=== PATIENT | male | born 1965 | race Two or more races ===

== ENCOUNTER 2020-10-11 06:59 | Inpatient (IN) | payer BC, OTHER ==
[~2020-10-11] VITALS: Ht 167.6 cm; Wt 133.6 kg
[2020-10-11 07:38] LABS: Basophils # (auto) 0 10 ^3/uL (0-0.2); Basophils % (auto) 0.6 % (0.0-2.0); Eosinophils # (auto) 0.2 10 ^3/uL (0-0.8); Eosinophils % (auto) 2.4 % (0.0-7.0); Hematocrit 43.2 % (41.0-53.0); Hemoglobin 15.2 g/dL (13.5-17.5); Lymphocytes # (auto) 1.4 10 ^3/uL (0.4-5.4); Mean Corpuscular Hemoglobin 31.9 pg (28.0-32.0); Mean Corpuscular Hgb Conc. 35.2 g/dL (32.0-36.0); Mean Corpuscular Volume 90.6 fL (80.0-100.0); Monocytes # (auto) 0.5 10 ^3/uL (0-1.3); Neutrophils # (auto) 5.9 10 ^3/uL (1.6-8.6); Red Blood Cells 4.77 10^6/uL (4.5-5.90); Red Cell Distribution Width 12.3 % (11.8-14.3)
[2020-10-11 07:44] LABS: Albumin 3.6 g/dL (3.4-5.0); Calcium 8.7 mg/dL (8.5-10.1); Potassium 3.9 mmol/L (3.5-5.1)
[2020-10-11 07:47] LABS: BUN/Creatinine Ratio 9.3; Bilirubin, Total 0.6 mg/dL (0.2-1.0); Total Protein 7.5 g/dL (6.4-8.2)
[2020-10-11] MEDS ORDERED: metroNIDAZOLE 500MG/100ML 100 ML IV ONE (09:30)
[2020-10-11] MEDS ORDERED: SODIUM CHLORIDE 0.9% 1,000 ML IV ONE (09:30)
[2020-10-11] MEDS ORDERED: levoFLOXacin 500MG 100 ML IV ONE (09:30)
[2020-10-11] MEDS ORDERED: KETOROLAC TROMETH 30 MG/ML 1ML VIAL IV ONE (09:30)
[2020-10-11] MEDS ORDERED: HYDROcodone-ACET 5/325MG TAB PO PRN (10:30)
[2020-10-11] MEDS ORDERED: MORPHINE SULFATE INJECTION 2 MG/ML SYRG IV PRN (10:30)
[2020-10-11 14:00] VITALS: BP 117/69
[2020-10-11] MEDS: SODIUM CHLORIDE 0.9% 1,000 ML IV SCH (14:45)
[2020-10-11] MEDS: metroNIDAZOLE 500MG/100ML 100 ML IV SCH ×2 (14:46→22:40)
[2020-10-11 17:10] VITALS: BP 115/72
[2020-10-11 20:00] VITALS: BP 123/76
[2020-10-11] MEDS: DOCUSATE SOD 100 MG CAP PO SCH (22:41)
[2020-10-12] MEDS: SODIUM CHLORIDE 0.9% 1,000 ML IV SCH ×3 (02:23→16:30)
[2020-10-12 04:00] VITALS: BP 103/65
[2020-10-12] MEDS: metroNIDAZOLE 500MG/100ML 100 ML IV SCH ×3 (05:57→21:34)
[2020-10-12 07:07] LABS: Basophils # (auto) 0 10 ^3/uL (0-0.2); Basophils % (auto) 0.4 % (0.0-2.0); Eosinophils # (auto) 0.2 10 ^3/uL (0-0.8); Eosinophils % (auto) 2.7 % (0.0-7.0); Hematocrit 41.2 % (41.0-53.0); Hemoglobin 14.6 g/dL (13.5-17.5); Lymphocytes # (auto) 1.2 10 ^3/uL (0.4-5.4); Lymphocytes % (auto) 16.9 % (10.0-50.0); Mean Corpuscular Hemoglobin 32.1 pg (28.0-32.0); Mean Corpuscular Hgb Conc. 35.5 g/dL (32.0-36.0); Mean Corpuscular Volume 90.6 fL (80.0-100.0); Monocytes # (auto) 0.7 10 ^3/uL (0-1.3); Monocytes % (auto) 9.8 % (0.0-12.0); Neutrophils # (auto) 5.1 10 ^3/uL (1.6-8.6); Neutrophils % (auto) 70.2 % (37.0-80.0); Red Blood Cells 4.55 10^6/uL (4.5-5.90); Red Cell Distribution Width 12.4 % (11.8-14.3); White Blood Cell 7.3 10^3/uL (4.4-10.8)
[2020-10-12 07:19] LABS: Calcium 8.2 mg/dL (8.5-10.1)
[2020-10-12 07:22] LABS: BUN/Creatinine Ratio 13.4
[2020-10-12] MEDS: DOCUSATE SOD 100 MG CAP PO SCH ×2 (09:26→20:20)
[2020-10-12] MEDS: levoFLOXacin 500MG 100 ML IV SCH (09:26)
[2020-10-12] MEDS: ACETAMINOPHEN 325 MG TAB PO PRN ×2 (11:49→20:20)
[2020-10-12] MEDS: ONDANSETRON HCL 4 MG/2 ML VIAL IV PRN ×2 (12:44→21:41)
[2020-10-12 18:20] VITALS: BP 106/71
[2020-10-13 01:00] VITALS: BP 121/76
[2020-10-13] MEDS: SODIUM CHLORIDE 0.9% 1,000 ML IV SCH ×2 (02:08→12:16)
[2020-10-13] MEDS: metroNIDAZOLE 500MG/100ML 100 ML IV SCH ×3 (05:37→22:01)
[2020-10-13 08:00] VITALS: BP 111/77
[2020-10-13] MEDS: levoFLOXacin 500MG 100 ML IV SCH (10:15)
[2020-10-13] MEDS: DOCUSATE SOD 100 MG CAP PO SCH ×2 (10:15→21:02)
[2020-10-13 16:00] VITALS: BP 114/80
[2020-10-13 22:31] VITALS: BP 135/87
[2020-10-13 22:38] VITALS: BP 100/68
[2020-10-14] MEDS: SODIUM CHLORIDE 0.9% 1,000 ML IV SCH ×2 (02:59→09:08)
[2020-10-14 05:40] VITALS: BP 103/69
[2020-10-14] MEDS: metroNIDAZOLE 500MG/100ML 100 ML IV SCH (05:51)
[2020-10-14 07:32] VITALS: BP 106/76
[2020-10-14] MEDS: levoFLOXacin 500MG 100 ML IV SCH (09:09)
[2020-10-14] MEDS: DOCUSATE SOD 100 MG CAP PO SCH (09:09)
[2020-10-14 09:55] VITALS: BP 106/76
== END 2020-10-14 11:02 | disposition home or self-care (01) | DRG 392 ==
LOC: ER 06:59 → OVERFLOW 07:00 → EAST 10-12 18:18 → DOU IN ADS 10-12 20:17
PROVIDERS: ADMIT Nurse Practitioner Acute Care; ATTEND Family Medicine
DX: K57.32 Diverticulitis of large intestine without perforation or abscess without bleeding (principal); K44.9 Diaphragmatic hernia without obstruction or gangrene; Z20.822 Contact with and (suspected) exposure to COVID-19; N40.0 Benign prostatic hyperplasia without lower urinary tract symptoms; K59.00 Constipation, unspecified
CPT/HCPCS: 36415; 74176; 80048; 80053; 83605; 85025; 87426; 93005; G0378; J1885; J1956; J2405; J3490

== ENCOUNTER → 2021-01-12 | Day surgery (SDC) | payer BC ==
[2021-01-09 15:32] LABS: Basophils # (auto) 0.1 10 ^3/uL (0-0.2); Basophils % (auto) 0.9 % (0.0-2.0); Eosinophils # (auto) 0.3 10 ^3/uL (0-0.8); Eosinophils % (auto) 4.1 % (0.0-7.0); Hematocrit 45.3 % (41.0-53.0); Lymphocytes # (auto) 2.4 10 ^3/uL (0.4-5.4); Lymphocytes % (auto) 33.6 % (10.0-50.0); Mean Corpuscular Hemoglobin 31.8 pg (28.0-32.0); Mean Corpuscular Hgb Conc. 35.3 g/dL (32.0-36.0); Mean Corpuscular Volume 90.1 fL (80.0-100.0); Monocytes # (auto) 0.8 10 ^3/uL (0-1.3); Monocytes % (auto) 10.7 % (0.0-12.0); Neutrophils # (auto) 3.6 10 ^3/uL (1.6-8.6); Neutrophils % (auto) 50.7 % (37.0-80.0); Nucleated Red Blood Cells % 0.1 %; Platelet Count (auto) 235 10^3/uL (140-450); Red Blood Cells 5.03 10^6/uL (4.5-5.90); Red Cell Distribution Width 12.9 % (11.8-14.3); White Blood Cell 7.1 10^3/uL (4.4-10.8)
[2021-01-09 15:49] LABS: INR 0.97 (0.9-1.15); Partial Thromboplastin Time 26.9 sec (23.0-31.2)
[2021-01-09 15:52] LABS: Albumin 3.9 g/dL (3.4-5.0); Calcium 8.6 mg/dL (8.5-10.1); Potassium 3.9 mmol/L (3.5-5.1)
[2021-01-09 15:56] LABS: BUN/Creatinine Ratio 8.2; Bilirubin, Total 0.4 mg/dL (0.2-1.0); Total Protein 7.6 g/dL (6.4-8.2)
[~2021-01-12] VITALS: Ht 167.6 cm; Wt 77.1 kg
[~2021-01-12] MED LIST: diphenhdrAMINE HCL 50 MG/1 ML VL ONE
[2021-01-12] MEDS: fentaNYL CITRATE 100 MCG/2 ML VL ONE ×2 (11:25→11:31)
[2021-01-12] MEDS: MIDAZOLAM HCL 5 MG/ML-1ML VIAL ONE ×2 (11:25→11:31)
[2021-01-12 12:15] VITALS: BP 101/74
== END | disposition home or self-care (01) ==
LOC: GI 10:45
PROVIDERS: ATTEND Internal Medicine Gastroenterology
DX: R10.32 Left lower quadrant pain (principal); K62.89 Other specified diseases of anus and rectum; K63.89 Other specified diseases of intestine; K64.8 Other hemorrhoids; Z20.822 Contact with and (suspected) exposure to COVID-19; Z98.890 Other specified postprocedural states; Z79.899 Other long term (current) drug therapy
CPT/HCPCS: 36415; 45380; 80053; 85025; 85610; 85730; J1200; J2250; J3010; J7030; U0003; 45378; 99152